=== PATIENT | male | born 1990 | race Hispanic/Latino ===

== ENCOUNTER 2018-04-19 19:51 | Emergency (ER) | payer BC ==
[~2018-04-19] VITALS: Ht 175.3 cm; Wt 103.4 kg
[2018-04-19] MEDS ORDERED: KETOROLAC TROMETHAMINE 30 MG/ML VIAL IV STA (20:06)
[2018-04-19] MEDS ORDERED: SODIUM CHLORIDE 0.9% 1000ML 1,000 ML IV SCH (20:15)
[2018-04-19 21:23] VITALS: BP 143/77
== END 2018-04-19 21:27 | disposition home or self-care (01) ==
LOC: FSED 19:51
DX: R19.7 Diarrhea, unspecified (principal); K52.9 Noninfective gastroenteritis and colitis, unspecified
CPT/HCPCS: 99283; J1885; J7030